=== PATIENT | female | born 1995 | race Caucasian/White ===

== ENCOUNTER 2020-09-13 12:27 | Emergency (ER) | payer BC, OTHER ==
[~2020-09-13 12:27] MED LIST: OMNICEF 300 MG300 MG PO; PRENATAL TABLE1 EAC1 PO; PYRIDIUM200 MG PO
== END 2020-09-13 15:35 | disposition home or self-care (01) ==
LOC: ER1 12:27
DX: Z03.821 Encounter for observation for suspected ingested foreign body ruled out (principal); Z88.0 Allergy status to penicillin; F17.210 Nicotine dependence, cigarettes, uncomplicated
CPT/HCPCS: 70360; 71045; 99283